=== PATIENT | male | born 1990 | race Caucasian/White ===

== ENCOUNTER 2021-02-14 00:25 | Emergency (ER) | payer BC ==
[2021-02-14] MEDS ORDERED: Sodium Chloride 0.9% 2.5 ML Syringe FLUSH PRN (01:10)
[2021-02-14] MEDS ORDERED: Sodium Chloride 0.9% 1,000 ML IV ONE (01:10)
[2021-02-14] MEDS ORDERED: Sodium Chloride 0.9% 10 ML Syringe FLUSH PRN (01:10)
[2021-02-14] MEDS ORDERED: Aspirin 325 MG Tab PO ONE (01:47)
[2021-02-14 01:50] LABS: BLOOD UREA NITROGEN,BUN 20 mg/dL (7.0-18.0); CARBON DIOXIDE,CO2 25.4 mmol/L (21.0-32.0); CHLORIDE,CL 101 mmol/L (98-107); GLUCOSE RANDOM 169 mg/dL (74-106); POTASSIUM,K 3.5 mmol/L (3.5-5.1); SODIUM,NA 139 mmol/L (136-148)
--- NOTE | 2021-02-14 02:25 | EDM.PDOC ---
ED HPI GENERAL MEDICAL PROBLEM - General Chief Complaint: Neuro Symptoms/Deficits Stated Complaint: CHEST PAIN, LEFT SIDE WENT NUMB Time Seen by Provider: 02/14/21 01:41 - History of Present Illness INITIAL COMMENTS - FREE TEXT/NARRATIVE: HISTORY AND PHYSICAL: History of present illness: This is a 30-year-old gentleman with no history of hypertension, diabetes, liver, lung, kidney, cholesterol problems in the past who presents ER today secondary to numbness to his left side that started approximately 11:30 PM. Patient reports that at approximately 9 PM he took 1 THC gummy bear for the first time. He reports he waited approximately 1 hour and took a second gummy bear since he had not felt any effect from the first 1. Patient reports that he drank approximately 6 beers throughout the course of the day which is not un usual for him and did not feel intoxicated when the symptoms started. Patient reports that approximately 11:30 PM he started feeling a tingling sensation in his chest face left arm. Patient reports that he spoke to his family and decided to come to the ED for further evaluation. Patient denied any weakness to his upper or lower extremities. Patient denies any slurring of speech. Patient denies any double vision or blurred vision. Patient reports no facial asymmetries. Patient reports that he has had a numb sensation on the left side of his face that upon arrival to the ED has completely resolved. Patient denies any recent fevers, shakes, chills, nausea, vomiting, diarrhea, dysuria, frequency or emergency, chest pain, shortness of breath. Patient reports that he had no gait instability or difficulty with walking. Patient reports no prior similar symptoms. Upon reevaluating patient in the ED, he reports that he believes that his symptoms are likely secondary to the THC gummy bears that he took. He reports that he took 2 of them and thinks it might have been too much. Patient reports that he has never taken the THC gummy bears in the past and that this was his first time. Review of systems: As per history of present illness and below otherwise all systems reviewed and negative. Past medical history: As per history of present illness and as reviewed below otherwise noncontributory. Surgical history: As per history of present illness and as reviewed below otherwise noncontributory. Social history: No reported history of drug abuse. Family history: As per history of present illness and as reviewed below otherwise noncontributory. Physical exam: This patient was seen and evaluated during the 2019 SARS-CoV-2 novel coronavirus pandemic period. Community viral transmission is ongoing at time of this encounter and the emergency department is operating under pandemic response procedures. Constitutional: Patient is oriented to person, place, and time. Appears well- developed and well-nourished. No distress. HEENT: Moist mucous membranes Head: Normocephalic and atraumatic Eyes: Right eye exhibits no discharge. Left eye exhibits no discharge. No scleral icterus Neck: Normal range of motion. No tracheal deviation present. Cardiovascular: Normal rate and regular rhythm. Pulmonary: Effort normal, no respiratory distress. Abdominal: No distention Musculoskeletal: Normal range of motion Neurologic: Alert and oriented to person, place and time. Skin: [place], warm and dry. Psychiatric: Normal mood and affect. Behavior is normal. Judgment and thought content normal. Nursing note and vital signs have been reviewed Neuro: A&Ox3. Cranial nerves II-XII grossly intact, 5/5 strength to bilateral upper and lower extremities, sensation intact to bilateral upper and lower extremities, no nystagmus, PERRLA, EOMI, normal speech, proprioception intact to bilateral lower extremities, normal finger to nose test, gait normal. Normal Romberg's. Normal gait. No paresthesias. NIH score of 0 Diagnostics: CT the head: Patient adamantly refuses to obtain a CT scan of his head. I have discussed with the patient that it is possible for me to determine whether or not he might of had a small infarct without obtaining a CT of his head. Patient reports that he feels that it was most likely secondary to the THC and does not feel that is warranted and does not want to spend the money on it. Patient is currently alert awake and orient x3. Patient understands my concerns with not obtain a CT scan of his head. Given that the patient is currently able to display both capacity for medical decision making and competency, I will respect his autonomy and we will hold off obtain a CT scan of his head. CBC, CMP within normal limits. Patient's alcohol level is 0. EKG: As interpreted by ER physician: Stacy: Nonspecific ST-T wave abnormalities Normal axis No evidence of ST elevation [place] Normal sinus rhythm heart rate of 100 February 14, 2021 12:39 AM Therapeutics: Aspirin 325 mg p.o. Assessment and plan: 30-year-old gentleman who presents ER today secondary to paresthesias to the left side of his body that started approximately 2 hours after ingesting a gummy bear that had THC. Patient reports that he took 2 of them back to back but did not feel any effect shortly after taking the first 1. At this time, the patient reports that his symptoms have completely resolved. Patient is refusing to obtain a CT scan of his head. Patient understands the risks and benefits of not fully diagnosing will ruling out a stroke with a CT scan of his head. Given that the patient is exhibiting capacity and competency for medical student making, I will respect to autonomy and we will defer the CT scan per his request. Patient will be monitored here in the ED. Patient be given an aspirin and start to take an aspirin daily till he gets reevaluated by his primary care physician. Patient currently is back to baseline with a NIH score of 0 Definitive disposition and diagnosis as appropriate pending reevaluation and review of above. Left Chest Pain Score (Numeric/FACES): 4 - Related Data Allergies Allergy/AdvReac Type Severity Reaction Status Date / Time Penicillins Allergy Mild Hives Verified 02/14/21 00:33 Home Meds: Home Meds . [No Known Home Meds] 02/14/21 [History] Past Medical History - Past Health History Medical/Surgical History: Denies Medical/Surgical History Respiratory History: Reports: None Gastrointestinal History: Reports: None Genitourinary History: Reports: None Musculoskeletal History: Reports: None Neurological History: Reports: None Endocrine/Metabolic History: Reports: None Hematologic History: Reports: None Oncologic (Cancer) History: Reports: None Dermatologic History: Reports: None - Infectious Disease History Infectious Disease History: Reports: None - Past Surgical History Head Surgeries/Procedures: Reports: None Cardiovascular Surgical History: Reports: None GI Surgical History: Reports: None Male Surgical History: Reports: None Neurological Surgical History: Reports: None Musculoskeletal Surgical History: Reports: None Social & Family History - Family History Family Medical History: No Pertinent Family History - Tobacco Use Tobacco Use Status *Q: Never Tobacco User - Caffeine Use Caffeine Use: Reports: Coffee - Alcohol Use Days Per Week of Alcohol Use: 4 Number of Drinks Per Day: 3 Total Drinks Per Week: 12 - Recreational Drug Use Recreational Drug Use: No ED ROS GENERAL - Review of Systems Review Of Systems: See Below ED EXAM, GENERAL - Physical Exam Exam: See Below Course - Vital Signs Last Recorded V/S: Last Vital Signs Temp 97.3 F 02/14/21 00:33 Pulse 95 02/14/21 00:33 Resp 20 02/14/21 00:33 BP 134/82 02/14/21 00:33 Pulse Ox 96 02/14/21 00:33 - Orders/Labs/Meds Orders: Active Orders 24 hr Category Date Time Status DRUG SCREEN, URINE [URCHEM] Stat Lab 02/14/21 01:11 Ordered Sodium Chloride 0.9% [Saline Flush] Med 02/14/21 01:10 Active 10 ml FLUSH ASDIRECTED PRN Sodium Chloride 0.9% [Saline Flush] Med 02/14/21 01:10 Active 2.5 ml FLUSH ASDIRECTED PRN Saline Lock Insert [OM.PC] Stat Oth 02/14/21 01:10 Ordered Medication Orders Sodium Chloride (Sodium Chloride 0.9% 10 Ml Syringe) 10 ml FLUSH ASDIRECTED PRN PRN Reason: Keep Vein Open Sodium Chloride (Sodium Chloride 0.9% 2.5 Ml Syringe) 2.5 ml FLUSH ASDIRECTED PRN PRN Reason: Keep Vein Open Labs: Laboratory Tests 02/14/21 02/14/21 02/14/21 Range/Units 01:25 01:25 01:25 WBC 5.61 (4.0-11.0) K/uL RBC 4.75 (4.50-5.90) M/uL Hgb 13.5 (13.0-17.0) g/dL Hct 40.1 (38.0-50.0) % MCV 84.4 (80.0-98.0) fL MCH 28.4 (27.0-32.0) pg MCHC 33.7 (31.0-37.0) g/dL RDW Std Deviation 40.6 (28.0-62.0) fl RDW Coeff of Sonia 13 (11.0-15.0) % Plt Count 257 (150-400) K/uL MPV 9.70 (7.40-12.00) fL Neut % (Auto) 36.8 L (48.0-80.0) % Lymph % (Auto) 51.5 H (16.0-40.0) % Peach % (Auto) 8.7 (0.0-15.0) % Eos % (Auto) 2.5 (0.0-7.0) % Baso % (Auto) 0.5 (0.0-1.5) % Neut # (Auto) 2.1 (1.4-5.7) K/uL Lymph # (Auto) 2.9 H (0.6-2.4) K/uL Peach # (Auto) 0.5 (0.0-0.8) K/uL Eos # (Auto) 0.1 (0.0-0.7) K/uL Baso # (Auto) 0.0 (0.0-0.1) K/uL Nucleated RBC % 0.0 /100WBC Nucleated RBCs # 0 K/uL INR 1.03 Sodium 139 (136-148) mmol/L Potassium 3.5 (3.5-5.1) mmol/L Chloride 101 (98-107) mmol/L Carbon Dioxide 25.4 (21.0-32.0) mmol/L BUN 20 H (7.0-18.0) mg/dL Creatinine 1.4 H (0.8-1.3) mg/dL Est Cr Clr Drug Dosing 87.19 mL/min Estimated GFR (MDRD) 59.5 ml/min Glucose 169 H (74-106) mg/dL Calcium 8.5 (8.5-10.1) mg/dL Magnesium 2.1 (1.8-2.4) mg/dL Total Bilirubin 0.3 (0.2-1.0) mg/dL AST 31 (15-37) IU/L ALT 71 H (14-63) IU/L Alkaline Phosphatase 66 (46-116) U/L Total Protein 7.4 (6.4-8.2) g/dL Albumin 4.2 (3.4-5.0) g/dL Globulin 3.2 (2.6-4.0) g/dL Albumin/Globulin Ratio 1.3 (0.9-1.6) Ethyl Alcohol < 3.0 mg/dL Meds: Medications Generic Name Dose Route Start Last Admin Trade Name Freq PRN Reason Stop Dose Admin Sodium Chloride 10 ml 02/14/21 01:10 Sodium Chloride 0.9% 10 Ml Syringe FLUSH ASDIRECTED PRN Keep Vein Open Sodium Chloride 2.5 ml 02/14/21 01:10 Sodium Chloride 0.9% 2.5 Ml Syringe FLUSH ASDIRECTED PRN Keep Vein Open Discontinued Medications Generic Name Dose Route Start Last Admin Trade Name Irene PRN Reason Stop Dose Admin Aspirin 325 mg 02/14/21 01:47 Aspirin 325 Mg Tab PO 02/14/21 01:48 ONETIME ONE Sodium Chloride 1,000 mls @ 999 mls/hr 02/14/21 01:10 02/14/21 01:41 Normal Saline IV 02/14/21 02:10 Not Given .Bolus ONE Departure - Departure Time of Disposition: 02:28 Disposition: Home, Self-Care 01 Condition: Good Clinical Impression: Arm paresthesia, left, Left leg paresthesias Marijuana intoxication Qualifiers: Complication of substance-induced condition: with unspecified complication Qualified Code(s): F12.929 - Cannabis use, unspecified with intoxication, unspecified - Discharge Information Instructions: Paresthesia, Cannabis Use Disorder Referrals: Perry Pulido MD [Primary Care Provider] - Forms: ED Department Discharge Additional Instructions: You were seen and evaluated in the ER today secondary to transient episode of numbness to the left side of your body. As we discussed, we are unable to rule out a possible stroke as a cause of the symptoms since you have refused to obtain a CT scan of your head here in the ED. It is also likely that the symptoms that you experienced may be related to the THC use with the gummy bears that you took earlier today. Please avoid further use of THC gummy bears as he is might have some undesired side effects. Please make an appointment to follow-up with your doctor next week for reevaluation. In the meantime I would recommend that you take 1 baby aspirin daily to prevent any further possible strokes in the future. The following information is given to patients seen in the emergency department who are being discharged to home. This information is to outline your options for follow-up care. We provide all patients seen in our emergency department with a follow-up referral. The need for follow-up, as well as the timing and circumstances, are variable depending upon the specifics of your emergency department visit. If you don't have a primary care physician on staff, we will provide you with a referral. We always advise you to contact your personal physician following an emergency department visit to inform them of the circumstance of the visit and for follow-up with them and/or the need for any referrals to a consulting specialist. The emergency department will also refer you to a specialist when appropriate. This referral assures that you have the opportunity for follow-up care with a specialist. All of these measure are taken in an effort to provide you with optimal care, which includes your follow-up. Under all circumstances we always encourage you to contact your private physician who remains a resource for coordinating your care. When calling for follow-up care, please make the office aware that this follow-up is from your recent emergency room visit. If for any reason you are refused follow-up, please contact the [facility] Emergency Department at and asked to speak to the emergency department charge nurse. [facility] [address] [place] [address] [place] [address] Sepsis Event Note (ED) - Focused Exam Vital Signs: Vital Signs Temp Pulse Resp BP Pulse Ox 02/14/21 00:33 97.3 F 95 20 134/82 96 - My Orders Last 24 Hours: My Active Orders 02/14/21 01:10 Sodium Chloride 0.9% [Saline Flush] 10 ml FLUSH ASDIRECTED PRN Sodium Chloride 0.9% [Saline Flush] 2.5 ml FLUSH ASDIRECTED PRN Saline Lock Insert [OM.PC] Stat 02/14/21 01:11 DRUG SCREEN, URINE [URCHEM] Stat - Assessment/Plan Last 24 Hours: My Active Orders 02/14/21 01:10 Sodium Chloride 0.9% [Saline Flush] 10 ml FLUSH ASDIRECTED PRN Sodium Chloride 0.9% [Saline Flush] 2.5 ml FLUSH ASDIRECTED PRN Saline Lock Insert [OM.PC] Stat 02/14/21 01:11 DRUG SCREEN, URINE [URCHEM] Stat
== END 2021-02-14 02:30 | disposition home or self-care (01) ==
LOC: MW.ED 00:25
DX: R20.2 Paresthesia of skin (principal); F12.929 Cannabis use, unspecified with intoxication, unspecified; Z88.0 Allergy status to penicillin
CPT/HCPCS: 36415; 80053; 80305; 80307; 83735; 85025; 85610; 93005; 99284; A9270